=== PATIENT | female | born 1995 | race Caucasian/White ===

== ENCOUNTER 2018-06-05 12:47 | Day surgery (SDC) | payer OTHER ==
[~2018-06-05] VITALS: Ht 162.6 cm; Wt 63.7 kg
[2018-06-05] MEDS ORDERED: LEVAQUIN 5500 MG/TA1 PO (13:18)
[2018-06-05] MEDS ORDERED: PYRIDIUM 100MG100 MG PO (13:19)
[2018-06-05 13:39] VITALS: BP 120/88; PULSE 93; TEMP 97.6
[2018-06-05 14:45] VITALS: BP 119/81; PULSE 87
[2018-06-05 15:00] VITALS: BP 104/76; PULSE 86
[2018-06-05 15:15] VITALS: BP 112/75; PULSE 117
[2018-06-05 15:30] VITALS: BP 107/72; PULSE 92
[2018-06-05] MEDS ORDERED: PAMELOR 25MG25 MG (15:50)
== END 2018-06-05 15:45 | disposition home or self-care (01) ==
LOC: SDCO 12:47
DX: K59.00 Constipation, unspecified (principal); K58.0 Irritable bowel syndrome with diarrhea; Z87.891 Personal history of nicotine dependence
CPT/HCPCS: J2250; J2405; J3010; J7030